=== PATIENT | female | born 1995 | race Caucasian/White ===

== ENCOUNTER 2017-03-18 16:54 | Emergency (ER) | payer OTHER ==
[~2017-03-18] VITALS: Ht 152.4 cm; Wt 68.0 kg
[~2017-03-18 16:54] MED LIST: MACROBID100 M1 PO; MOTRIN400 MG PO; PRENATAL1 TA3 PO
== END 2017-03-18 19:50 | disposition home or self-care (01) ==
LOC: ED 16:54
DX: M79.671 Pain in right foot (principal); Z79.899 Other long term (current) drug therapy; X50.1XXA Overexertion from prolonged static or awkward postures, initial encounter; Y93.89 Activity, other specified; Y92.89 Other specified places as the place of occurrence of the external cause; Y99.9 Unspecified external cause status

== ENCOUNTER 2018-11-28 18:20 | Emergency (ER) | payer OTHER ==
[~2018-11-28] VITALS: Ht 152.4 cm; Wt 77.1 kg
[2018-11-28] MEDS ORDERED: AMOXICILLIN500 M2 PO ×2 (19:55→20:02)
== END 2018-11-28 20:49 | disposition home or self-care (01) ==
LOC: ED 18:20
DX: J06.9 Acute upper respiratory infection, unspecified (principal); H66.91 Otitis media, unspecified, right ear